=== PATIENT | female | born 1940 | race Caucasian/White ===

== ENCOUNTER → 2017-01-15 | Day surgery (SDC) | payer MEDICARE, OTHER ==
[~2017-01-15] MED LIST: ANUSOL; ATIVAN0.5 MG PO; CELEXA20 M1 PO; CELEXA20 MG PO; DOXYCYCLINE; FUROSEMIDE40 MG PO; KCL; KLOR-CON SPRIN10 MEQ; LASIX; LIPITOR; LODINE; LOPRESSOR PO; MELOXICAM15 MG PO; OMEPRAZOLE20 M1 PO; OMEPRAZOLE40 M1 PO; PRAVASTATIN SOD80 MG PO; RANITIDINE HCL150 M1 PO; TAGAMET
--- NOTE | ~2017-01-15 | OR ---
Unit #: [id number] #: [id number] Patient: SELENE GODWIN [id number] [address] [place], [place] [address] [id number] MR#: [id number] NAME: SELENE GODWIN ROOM: Date of Procedure: 01/15/2017 Admission Date: 01/15/2017 Surgeon: Klaus Adams M.D. : 1940 Attending Physician: Klaus Adams M.D. Primary Care Physician: Maricarmen Perez M.D. OPERATIVE REPORT PRIMARY CARE PHYSICIAN Maricarmen Perez M.D. PREOPERATIVE DIAGNOSES Colorectal cancer surveillance. The patient has personal history of colonic adenomas and has come for surveillance colonoscopy. PROCEDURE PERFORMED Colonoscopy up to cecum with good prep and visualization. POSTOPERATIVE DIAGNOSES 1. The patient had severe diffuse pandiverticulosis, otherwise examination was normal up to cecum. No polyps were present or seen. 2. Small internal hemorrhoids. 3. Rest of the examination up to cecum was normal. RECOMMENDATIONS Repeat colonoscopy in 5 years. SEDATION USED MAC. DESCRIPTION OF PROCEDURE Following detailed explanation of potential risks and complications of a colonoscopy, namely perforation, bleeding, and complication related to sedation, the patient was brought to GI lab and laid in the left lateral decubitus position. A digital rectal examination was performed, which was normal. Lubricated tip of the Olympus video colonoscope was inserted through the anus and advanced under direct vision. The scope was advanced past rectosigmoid into descending colon. Severe branching extensive colonic diverticulosis was noted in this area. The scope tip was then navigated all the way up to cecum with visualization of the ileocecal valve and the appendiceal orifice. Preparation was excellent with good visualization and photodocumentation was obtained. Successive segments of the colonic mucosa were examined upon withdrawal and appeared unremarkable. There being no polyps, mass lesions, or AVMs. The patient did have extensive pandiverticulosis as mentioned earlier. The successive segments of the colonic mucosa were examined upon withdrawal and appeared unremarkable except for presence of extensive pandiverticulosis. No polyps were seen. The patient was also noted to have small internal hemorrhoids at the anal verge. The scope was then withdrawn and the patient returned to recovery area. She tolerated the procedure without Unit #: [id number] #: [id number] Patient: SELENE GODWIN any postprocedure complications. Dictated by... Renay Jones TD: 01/16/2017 00:51 JOB #: [id number] OPERATIVE REPORT Page 1 of 1 X Klaus Adams MD PROCEDURE OPERATIVE NOTE
== END | disposition home or self-care (01) ==
LOC: COPS 08:39
DX: Z12.11 Encounter for screening for malignant neoplasm of colon (principal); Z86.010 Personal history of colon polyps; K57.30 Diverticulosis of large intestine without perforation or abscess without bleeding; K64.8 Other hemorrhoids; K21.9 Gastro-esophageal reflux disease without esophagitis; I10 Essential (primary) hypertension; Z87.891 Personal history of nicotine dependence; K44.9 Diaphragmatic hernia without obstruction or gangrene; Z90.710 Acquired absence of both cervix and uterus